=== PATIENT | male | born 1950 | race Two or more races ===

== ENCOUNTER 2018-02-22 12:42 | Observation (INO) | payer OTHER ==
[2018-02-22 13:06] VITALS: BMI 32.3
--- NOTE | 2018-02-22 13:39 | PDOC ---
History of Present Illness - General Chief Complaint: Pain Stated Complaint: ABD PAIN Time Seen by Provider: 02/22/18 13:37 History Source: Patient Exam Limitations: No Limitations Past History - Past Medical History Allergies/Adverse Reactions: Allergies Allergy/AdvReac Type Severity Reaction Status Date / Time Penicillins Allergy Mild Rash Verified 02/22/18 13:01 shellfish derived Allergy Mild Hives Verified 02/22/18 13:01 ceftriaxone sodium Allergy Verified 02/22/18 13:01 [From Jaimeks[place]] seafood Allergy Uncoded 02/22/18 13:01 Home Medications: Ambulatory Orders Metoprolol Succinate [Toprol Xl] 100 mg PO DAILY #30 tab.sr.24h 06/26/14 Simvastatin [Zocor -] 40 mg PO HS #30 tablet 06/26/14 Allopurinol [Zyloprim -] 300 mg PO DAILY 02/22/18 Benazepril/Hydrochlorothiazide [Benazepril-Hctz 20-25 mg Tab] 1 each PO DAILY Docusate Sodium 100 mg PO BID 02/22/18 Gemfibrozil 600 mg PO DAILY 02/22/18 Oxycodone HCl/Acetaminophen [Percocet 5-325 mg Tablet] 1 tab PO Q6H PRN Ruxolitinib Phosphate [Jakafi] 15 mg PO BID 02/22/18 metFORMIN HCL [Glucophage -] 1,000 mg PO DAILY 02/22/18 Anemia: No Asthma: No Cancer: Yes Cardiac Disorders: Yes (STENT PLACEMENT 2004) CVA: No COPD: No CHF: No Dementia: No Diabetes: Yes GI Disorders: No Disorders: No HTN: Yes Hypercholesterolemia: Yes Liver Disease: No Seizures: No Thyroid Disease: No - Surgical History Abdominal Surgery: No Appendectomy: No Cardiac Surgery: Yes (Stent x 2) Cholecystectomy: No Lung Surgery: No Neurologic Surgery: No Orthopedic Surgery: No - Immunization History Immunization Up to Date: Yes - Suicide/Smoking/Psychosocial Hx Smoking History: Never smoked Have you smoked in the past 12 months: No Number of Cigarettes Smoked Daily: 20 If you are a former smoker, when did you quit?: 15 YEARS Cigars Per Day: 0 Hx Alcohol Use: No Drug/Substance Use Hx: No Substance Use Type: None Hx Substance Use Treatment: No *Physical Exam - Vital Signs Last Vital Signs Temp Pulse Resp BP Pulse Ox 97.9 F 80 18 124/64 99 02/22/18 13:02 02/22/18 13:02 02/22/18 13:02 02/22/18 13:02 02/22/18 13:02 Moderate Sedation - Procedure Monitoring Vital Signs: Procedure Monitoring Vital Signs Temperature 97.9 F 02/22/18 13:02 Pulse Rate 80 02/22/18 13:02 Respiratory Rate 18 02/22/18 13:02 Blood Pressure 124/64 02/22/18 13:02 O2 Sat by Pulse Oximetry (%) 99 02/22/18 13:02 ED Treatment Course - LABORATORY CBC & Chemistry Diagram: 02/22/18 14:15 02/22/18 14:15 Medical Decision Making - Medical Decision Making Pt was seen at bedside, also will be seen by attending Dr. Valdez. Pt presenting with complaints of LUQ pain since last night. PE showed tenderness in the LUQ and LLQ, no rebound, no guarding, with hepatosplenomegaly present. Large, round mass (~4-5 cm) palpated in the LUQ of the abdomen. PE otherwise benign. Considering metastasis (liver/spleen/stomach/pancreas) vs diverticulosis/ diverticulitis vs colitis vs pancreatitis. Ordered work-up including CBC, CMP, Mg, lipase, troponin, UA, PT/INR, ECG and imaging including chest x-ray and abd/pelvis CT with IV contrast. Provided 4 mg IV morphine for improvement of pain. Will continue to reassess pt and monitor for symptomatic improvement. 02/22/18 14:25 CBC: platelets 82, no increased WBC CMP: glucose 190, Na 131, Cl 96 PT/INR WNL. Lipase WNL and troponin negative. 02/22/18 14:59 Pt has bloodwork from last week, appear similar to today (platelets 93) 02/22/18 15:[address] abd/pelvis and chest x-ray. Lactic acid 2.6 Pt did not meet sepsis protocol on presentation and did not appear clinically dry. Will initiate fluid hydration 1 L IV NS. 02/22/18 15:27 Repeat lactic acid sent to lab after fluid hydration. Chest x-ray showed no acute pathology. 02/22/18 17:57 CT abd/pelvis: Hepatosplenomegaly that has slightly decreased in size since the prior examination. Nodular hyperplasia of the left adrenal gland versus a nodule/adenoma measuring 1.3 cm. Small bilateral renal simple cysts. Small gallstones layering in the gallbladder neck region without CT evidence of acute cholecystitis. There is no evidence of small bowel obstruction. No free air or free fluid in the abdomen pelvis. Visualized osseous structures appear intact without evidence of focal bone destruction. 02/22/18 17:59 Paging hospitalist team for admission. Blank admission order placed per protocol. Dr. De Jesus called [facility] (Dr. Marilynn Greenberg - [phone]) and left a message to determine further information about the patient. 02/22/18 18:01 Pt accepted for admission. Admission order to be changed. Pt eating comfortably and says pain is controlled for now. Awaiting bed upstairs. 02/22/18 18:23 Repeat lactic acid 1.6 02/22/18 18:28 Dr. De Jesus spoke with Dr. Greenberg at [facility]. Pt MUST continue taking his Jalkani (chemotherapy medication) to avoid cytokine storm. ER nursing staff aware. Called admission team to make them aware, awaiting call back. Pts son bringing Jalkani to the hospital (we do not carry it in pharmacy) and he took his morning dose -- pt takes 15 mg PO BID. 02/22/18 18:59 Spoke with admitting team, aware that pt needs to take Jalkani medication. Son has brought medication to the ER and will receive afternoon dose. Pt comfortable and awaiting bed upstairs. 02/22/18 19:49 *DC/Admit/Observation/Transfer Diagnosis at time of Disposition: LUQ abdominal pain, Myelofibrosis, Hepatosplenomegaly - Discharge Dispostion Condition at time of disposition: Stable Decision to Admit order: Yes - Referrals - Patient Instructions - Post Discharge Activity
[2018-02-22] MEDS ORDERED: morphine CARPU-JECT 4 MG/1 ML DISP.SYRIN IVPUSH ONE (14:22)
[2018-02-22 14:24] LABS: BASO % 5.3 % (0-2.0); EOS % 3.1 % (0-4.5); HEMOGLOBIN 10.7 GM/dL (11.7-16.9); LYMPH % 15.2 % (8-40); MCH 28.5 pg (25.7-33.7); MCHC 35.5 g/dl (32.0-35.9); MEAN CELL VOLUME 80.1 fl (80-96); MEAN PLT VOLUME 8.8 fl (7.5-11.1); MONO % 5.4 % (3.8-10.2); PLATELET COUNT 82 K/MM3 (134-434); RBC 3.75 M/mm3 (4.00-5.60); RDW 24.4 % (11.9-15.9); WHITE BLOOD COUNT 5.8 K/mm3 (4.0-10.0)
[2018-02-22] MEDS ORDERED: morphine SULFATE 4 MG/ML VIAL ONE (14:25)
--- NOTE | 2018-02-22 14:27 | PDOC ---
Attending Attestation - Resident Resident Name: PaulLoida - ED Attending Attestation I have performed the following: I have examined & evaluated the patient, The case was reviewed & discussed with the resident, I agree w/resident's findings & plan, Exceptions are as noted - HPI HPI: 02/22/18 14:24 67 yo male with recently diagnosed myelofibrosis here with /co luq pain. pt has had h/o HSM, seen by dr. Blackburn today, sent for evaluation of luq pain. pt denies n/v no f/c no urinary complaints. no change to stool. did not take anything for pain prior to arrival. - Physicial Exam PE: 02/22/18 14:25 awake alert lungs clear bilaterally heart rrr no mrg abd soft luq ttp. no rebound no guarding. no cva tenderness. no palp rib tenderness. skin warm and dry. alert oriented x 3. - Medical Decision Making 02/22/18 14:26 67 yo male h/o myelofibrosis, hsm here with luq pain. plan ct a/p pain control labs. differential worsening mets, congestion gastric ulcer, uti pyelo plan labs ivf ua ct a/p Heart Score/ECG Review #1 General ECG Interpretation: Sinus Rhythm, Normal Rate, Normal Intervals, No acute ischemic changes Compared to previous ECG there are: No significant change (comparison 06/22/14 TWI III only)
[2018-02-22 14:47] LABS: INR 0.97 (0.83-1.09); PROTHROMBIN TIME (PATIENT) 11.4 SEC (9.7-13.0)
[2018-02-22 14:48] LABS: ALBUMIN 4.8 g/dl (3.4-5.0); ALK PHOS 52 U/L (45-117); ANION GAP 9 MMOL/L (8-16); BLOOD UREA NITROGEN 24 mg/dL (7-18); CALCIUM 8.4 mg/dL (8.5-10.1); CHLORIDE 96 mmol/L (98-107); CO2 26 mmol/L (21-32); CREATININE 1.3 mg/dL (0.55-1.3); GLUCOSE,RANDOM 190 mg/dL (74-106); LIPASE 210 U/L (73-393); MAGNESIUM 2.4 mg/dL (1.8-2.4); POTASSIUM 3.7 mmol/L (3.5-5.1); SGOT/AST 25 U/L (15-37); SGPT/ALT 28 U/L (13-61); SODIUM 131 mmol/L (136-145); TOT PROT 8.1 g/dl (6.4-8.2)
[2018-02-22] MEDS ORDERED: SODIUM CHLORIDE 1,000 ML IV STA (15:27)
[2018-02-22 15:53] LABS: ANISOCYTOSIS 1+; MACROCYTOSIS 0; OVALOCYTE 1+; PLATELET ESTIMATE DECREASED; TEAR DROP CELLS 1+
--- NOTE | 2018-02-22 16:23 | EKG ---
Test Reason : Blood Pressure : / mmHG Vent. Rate : 069 BPM Atrial Rate : 069 BPM P-R Int : 150 ms QRS Dur : 088 ms QT Int : 392 ms P-R-T Axes : 048 -05 005 degrees QTc Int : 420 ms NORMAL SINUS RHYTHM INFERIOR INFARCT (CITED ON OR BEFORE 11-JUN-2014) ABNORMAL ECG Confirmed by MD SJ, LIBBY (2012) on 02/22/2018 4:22:48 PM Referred By: Confirmed By:LIBBY GUSTAFSON MD
[2018-02-22 17:19] LABS: URINE APPEARANCE CLEAR; URINE BILIRUBIN NEGATIVE (<2.0 mg/dL); URINE COLOR STRAW; URINE GLUCOSE (UA) NEGATIVE (NEGATIVE); URINE KETONE NEGATIVE (NEGATIVE); URINE LEUK ESTERASE NEGATIVE (NEGATIVE); URINE NITRITE NEGATIVE (NEGATIVE); URINE PROTEIN NEGATIVE (NEGATIVE); URINE UROBILINOGEN NEGATIVE mg/dL (0.2-1.0)
[2018-02-22] MEDS ORDERED: ACETAMINOPHEN 325 MG TABLET (FP) PO PRN (18:54)
[2018-02-22] MEDS ORDERED: oxyCODONE HCL 5 MG TABLET PO PRN (18:54)
--- NOTE | 2018-02-22 19:30 | HP ---
CHIEF COMPLAINT: LUQ pain PCP: Dr. Collado HISTORY OF PRESENT ILLNESS: 67 year old male with a PMH significant for Myelofibrosis (on chemo), DM, HTN, HLD, gout presented to the ED with LUQ pain since last night. He presented to his PCP Dr. Collado today who advised him to go to the ED to be admitted for further GI work up. Denies recent fevers, light headedness, syncope, SOB, chest pain, n/v/d. Upon admission to the ED, VSS, labs notable for lactic acid of 2.6, trop neg, EKG with on ischemic changes. Abdominal/pelivic CT showed hepatosplenomegaly with nodules to adrenal glands. He was given 1 L NS and morphine 4 mg. Repeat lactic acid decreased to 1.6. He reports pain is now controlled. Recent Travel: No PAST MEDICAL HISTORY: Myelofibrosis DM HTN HLD Gout PAST SURGICAL HISTORY: Cardiac stent x1 Cardiac cath x2 Social History: Smoking: Never Alcohol: Denies Drugs: Denies Family History: Sister: Diabetes Allergies Penicillins Allergy (Mild, Verified 02/22/18 13:01) Rash shellfish derived Allergy (Mild, Verified 02/22/18 13:01) Hives ceftriaxone sodium [From Rocephin] Allergy (Verified 02/22/18 13:01) seafood Allergy (Uncoded 02/22/18 13:01) HOME MEDICATIONS: Home Medications Medication Instructions Recorded Metoprolol Succinate [Toprol Xl] 100 mg PO DAILY #30 tab.sr.24h 06/26/14 Simvastatin [Zocor -] 40 mg PO HS #30 tablet 06/26/14 Allopurinol [Zyloprim -] 300 mg PO DAILY 02/22/18 Benazepril/Hydrochlorothiazide 1 each PO DAILY 02/22/18 [Benazepril-Hctz 20-25 mg Tab] Docusate Sodium 100 mg PO BID 02/22/18 Gemfibrozil 600 mg PO DAILY 02/22/18 Oxycodone HCl/Acetaminophen 1 tab PO Q6H PRN 02/22/18 [Percocet 5-325 mg Tablet] Ruxolitinib Phosphate [Jakafi] 15 mg PO BID 02/22/18 metFORMIN HCL [Glucophage -] 1,000 mg PO DAILY 02/22/18 REVIEW OF SYSTEMS CONSTITUTIONAL: Absent: fever, chills, diaphoresis, generalized weakness, malaise, loss of appetite, weight change HEENT: Absent: rhinorrhea, nasal congestion, throat pain, throat swelling, difficulty swallowing, mouth swelling, ear pain, eye pain, visual changes CARDIOVASCULAR: Absent: chest pain, syncope, palpitations, irregular heart rate, lightheadedness , peripheral edema RESPIRATORY: Absent: cough, shortness of breath, dyspnea with exertion, orthopnea, wheezing, stridor, hemoptysis GASTROINTESTINAL: (+) Abdominal pain Absent: abdominal distension, nausea, vomiting, diarrhea, constipation, melena , hematochezia GENITOURINARY: Absent: dysuria, frequency, urgency, hesitancy, hematuria, flank pain, genital pain MUSCULOSKELETAL: Absent: myalgia, arthralgia, joint swelling, back pain, neck pain SKIN: Absent: rash, itching, pallor HEMATOLOGIC/IMMUNOLOGIC: Absent: easy bleeding, easy bruising, lymphadenopathy, frequent infections ENDOCRINE: Absent: unexplained weight gain, unexplained weight loss, heat intolerance, cold intolerance NEUROLOGIC: Absent: headache, focal weakness or paresthesias, dizziness, unsteady gait, seizure, mental status changes, bladder or bowel incontinence PSYCHIATRIC: Absent: anxiety, depression, suicidal or homicidal ideation, hallucinations. PHYSICAL EXAMINATION Vital Signs - 24 hr 02/22/18 02/22/18 13:02 18:14 Temperature 97.9 F 97.8 F Pulse Rate 80 Pulse Rate [ 65 Right Radial] Respiratory 18 17 Rate Blood Pressure 124/64 Blood Pressure 106/58 L [Left Arm] O2 Sat by Pulse 99 100 Oximetry (%) GENERAL: Awake, alert, and fully oriented, in no acute distress. HEAD: Normal with no signs of trauma. EYES: Arcus senils b/l pupils equal, round and reactive to light, extraocular movements intact, sclera anicteric, conjunctiva clear. No lid lag. EARS, NOSE, THROAT: Ears normal, nares patent, oropharynx clear without exudates. Moist mucous membranes. NECK: Normal range of motion, supple without lymphadenopathy, JVD, or masses. LUNGS: Breath sounds equal, clear to auscultation bilaterally. No wheezes, and no crackles. No accessory muscle use. HEART: Regular rate and rhythm, normal S1 and S2 without murmur, rub or gallop. ABDOMEN: Firm, hardened, round mass in LUQ, TTP, normoactive bowel sounds, no guarding, no rebound, no masses MUSCULOSKELETAL: Normal range of motion at all joints. No bony deformities or tenderness. No CVA tenderness. UPPER EXTREMITIES: 2+ pulses, warm, well-perfused. No cyanosis. No clubbing. No peripheral edema. LOWER EXTREMITIES: 2+ pulses, warm, well-perfused. No calf tenderness. No peripheral edema. NEUROLOGICAL: No facial droop, tongue midline, normal speech. PSYCHIATRIC: Cooperative. Good eye contact. Appropriate mood and affect. SKIN: Warm, dry, normal turgor, no rashes or lesions noted, normal capillary refill. Laboratory Results - last 24 hr 02/22/18 02/22/18 02/22/18 14:15 14:15 14:15 WBC 5.8 RBC 3.75 L Hgb 10.7 L Hct 30.0 L D MCV 80.1 MCH 28.5 MCHC 35.5 RDW 24.4 H Plt Count 82 L D MPV 8.8 Absolute Neuts (auto) 4.1 Neutrophils % 71.0 Neutrophils % (Manual) 58.9 Band Neutrophils % 3.2 Lymphocytes % 15.2 D Lymphocytes % (Manual) 14.7 Monocytes % 5.4 Monocytes % (Manual) 6 Eosinophils % 3.1 D Eosinophils % (Manual) 5.3 H Basophils % 5.3 H* Basophils % (Manual) 5.3 H* Myelocytes % (Man) 2 Promyelocytes % (Man) 0 Blast Cells % (Manual) 0 Nucleated RBC % 5 H Metamyelocytes 2 Hypochromia 0 Platelet Estimate Decreased Polychromasia 1+ Poikilocytosis 2+ Anisocytosis 1+ Microcytosis 1+ Macrocytosis 0 Tear Drop Cells 1+ Ovalocytes 1+ PT with INR 11.40 INR 0.97 Sodium 131 L Potassium 3.7 Chloride 96 L Carbon Dioxide 26 Anion Gap 9 BUN 24 H Creatinine 1.3 Creat Clearance w eGFR 55.40 Random Glucose 190 H Lactic Acid Calcium 8.4 L Magnesium 2.4 Total Bilirubin 1.0 AST 25 ALT 28 Alkaline Phosphatase 52 Troponin I < 0.02 Total Protein 8.1 Albumin 4.8 Lipase 210 Urine Color Urine Appearance Urine pH Ur Specific [place] Urine Protein Urine Glucose (UA) Urine Ketones Urine Blood Urine Nitrite Urine Bilirubin Urine Urobilinogen Ur Leukocyte Esterase Blood Type Antibody Screen 02/22/18 02/22/1818 14:15 14:15 17:11 WBC RBC Hgb Hct MCV MCH MCHC RDW Plt Count MPV Absolute Neuts (auto) Neutrophils % Neutrophils % (Manual) Band Neutrophils % Lymphocytes % Lymphocytes % (Manual) Monocytes % Monocytes % (Manual) Eosinophils % Eosinophils % (Manual) Basophils % Basophils % (Manual) Myelocytes % (Man) Promyelocytes % (Man) Blast Cells % (Manual) Nucleated RBC % Metamyelocytes Hypochromia Platelet Estimate Polychromasia Poikilocytosis Anisocytosis Microcytosis Macrocytosis Tear Drop Cells Ovalocytes PT with INR INR Sodium Potassium Chloride Carbon Dioxide Anion Gap BUN Creatinine Creat Clearance w eGFR Random Glucose Lactic Acid 2.6 H* Calcium Magnesium Total Bilirubin AST ALT Alkaline Phosphatase Troponin I Total Protein Albumin Lipase Urine Color Straw Urine Appearance Clear Urine pH 5.0 Ur Specific [place] 1.055 H Urine Protein Negative Urine Glucose (UA) Negative Urine Ketones Negative Urine Blood Negative Urine Nitrite Negative Urine Bilirubin Negative Urine Urobilinogen Negative Ur Leukocyte Esterase Negative Blood Type A POSITIVE Antibody Screen Negative 02/22/18 17:43 WBC RBC Hgb Hct MCV MCH MCHC RDW Plt Count MPV Absolute Neuts (auto) Neutrophils % Neutrophils % (Manual) Band Neutrophils % Lymphocytes % Lymphocytes % (Manual) Monocytes % Monocytes % (Manual) Eosinophils % Eosinophils % (Manual) Basophils % Basophils % (Manual) Myelocytes % (Man) Promyelocytes % (Man) Blast Cells % (Manual) Nucleated RBC % Metamyelocytes Hypochromia Platelet Estimate Polychromasia Poikilocytosis Anisocytosis Microcytosis Macrocytosis Tear Drop Cells Ovalocytes PT with INR INR Sodium Potassium Chloride Carbon Dioxide Anion Gap BUN Creatinine Creat Clearance w eGFR Random Glucose Lactic Acid 1.6 Calcium Magnesium Total Bilirubin AST ALT Alkaline Phosphatase Troponin I Total Protein Albumin Lipase Urine Color Urine Appearance Urine pH Ur Specific [place] Urine Protein Urine Glucose (UA) Urine Ketones Urine Blood Urine Nitrite Urine Bilirubin Urine Urobilinogen Ur Leukocyte Esterase Blood Type Antibody Screen CT Abdomen/Pelvis - Hepatosplenomegaly that has slightly decreased in size since the prior examination. - Nodular hyperplasia of the left adrenal gland versus a nodule/adenoma measuring 1.3 cm. - Small bilateral renal simple cysts. - Small gallstones layering in the gallbladder neck region without CT evidence of acute cholecystitis. - There is no evidence of small bowel obstruction. No free air or free fluid in the abdomen pelvis. - Visualized osseous structures appear intact without evidence of focal bone destruction. ASSESSMENT/PLAN: 67 year old male with a PMH significant for Myelofibrosis (on chemo), DM, HTN, HLD, gout presented to the ED with LUQ pain since last night. CT scan positive for hepatosplenomegaly. He was admitted for further GI work up and pain management. LUQ pain - Abdominal CT shows hepatosplenomegaly, nodules to adrenal glands, and small gallstones without cholecystitis - Possible metastases - GI consult ordered Myelofibrosis - Followed at [facility] (Dr. Marilynn Greenberg - [phone]) - Ruxolitinib Phosphate [Jakafi] 15 mg PO BID - Pain control - Percocet 5-325 mg PO Q6H PRN - Docusate Sodium 100 mg PO BID DM - HOLD home metFORMIN HCL 1,000 mg PO DAILY - Monitor fingerstick glucose - SS with Novolog CAD - S/p stent - Followed by drier tender Dr. Jones at [facility] HTN - Controlled - Metoprolol Succinate 100 mg PO DAILY - Benazepril/Hydrochlorothiazide 20-25 mg PO DAILY - Monitor BP HLD - Simvastatin 40 mg PO HS - Gemfibrozil 600 mg PO DAILY - LFTs WNL Gout - Allopurinol 300 mg PO DAILY Prophylaxis - DVT: Heparin SQ FEN - PO intake adequate - Replete as needed - Diabetic, sodium controlled diet Disp: Patient requires further inpatient workup Visit type - Emergency Visit Emergency Visit: Yes ED Registration Date: 02/22/18 Care time: The patient presented to the Emergency Department on the above date and was hospitalized for further evaluation of their emergent condition. - New Patient This patient is new to me today: Yes Date on this admission: 02/23/18 - Critical Care Critical Care patient: No
[2018-02-22] MEDS ORDERED: RUXOLITINIB PHOSPHATE PO SCH (22:00)
[2018-02-22] MEDS: DOCUSATE SODIUM 100 MG CAPSULE (FP) PO SCH (22:53)
[2018-02-22] MEDS: ATORVASTATIN CA 20 MG TABLET (FP) PO SCH (22:53)
[2018-02-22] MEDS: RUXOLITINIB PHOSPHATE PO SCH (22:57)
[2018-02-22] MEDS ORDERED: PT OWN MED DRAWER 7, Y5N ONE (23:00)
[2018-02-23] MEDS ORDERED: HEPARIN NA (PORCINE) 5,000 UNITS/ML 1ML VIAL SQ SCH (06:00)
[2018-02-23] MEDS ORDERED: PT OWN MED DRAWER 7, Y5N ONE ×6 (06:12→18:03)
[2018-02-23 06:46] LABS: HEMATOCRIT 25.4 % (35.4-49); HEMOGLOBIN 8.4 GM/dL (11.7-16.9); MCH 26.8 pg (25.7-33.7); MCHC 32.9 g/dl (32.0-35.9); MEAN CELL VOLUME 81.3 fl (80-96); MEAN PLT VOLUME 8.3 fl (7.5-11.1); PLATELET COUNT 53 K/MM3 (134-434); RBC 3.13 M/mm3 (4.00-5.60); RDW 24.4 % (11.9-15.9); WHITE BLOOD COUNT 4.2 K/mm3 (4.0-10.0)
[2018-02-23] MEDS: INSULIN SLIDING SCALE (NOVOLOG) 1 VIAL SQ SCH ×4 (06:46→16:43)
[2018-02-23] MEDS: GEMFIBROZIL 600 MG TABLET (FP) PO SCH ×2 (06:47→17:50)
[2018-02-23 06:49] LABS: ANION GAP 7 MMOL/L (8-16); BLOOD UREA NITROGEN 23 mg/dL (7-18); CALCIUM 7.9 mg/dL (8.5-10.1); CHLORIDE 102 mmol/L (98-107); CO2 27 mmol/L (21-32); CREATININE 1.3 mg/dL (0.55-1.3); GLUCOSE,RANDOM 168 mg/dL (74-106); MAGNESIUM 2.4 mg/dL (1.8-2.4); POTASSIUM 4.1 mmol/L (3.5-5.1); SODIUM 136 mmol/L (136-145)
[2018-02-23] MEDS: RUXOLITINIB PHOSPHATE PO SCH ×2 (08:23→16:44)
[2018-02-23] MEDS: ALLOPURINOL 300 MG TABLET (FP) PO SCH (09:52)
[2018-02-23] MEDS: LISINOPRIL 20 MG TABLET (FP) PO SCH (09:52)
[2018-02-23] MEDS: HYDROCHLOROTHIAZIDE 25 MG TABLET (FP) PO SCH (09:53)
[2018-02-23] MEDS: DOCUSATE SODIUM 100 MG CAPSULE (FP) PO SCH ×2 (09:53→21:34)
[2018-02-23] MEDS ORDERED: GEMFIBROZIL 600 MG TABLET (FP) PO SCH (10:00)
--- NOTE | 2018-02-23 12:58 | CON.GI ---
Consult Consult Specialty:: Gastroenterology Referred by:: Dr. Collado Reason for Consultation:: LUQ pain - History of Present Illness Chief Complaint: LUQ pain History of Present Illness: 67 yo male h/o myelofibrosis (on chemotherapy), CAD, DM, HTN presents with LUQ pain. Pt reports intermittent LUQ pain over the past few months, however with worsening over the past 1-2 days. He describes severe, sharp pain at left abdomen awakening him at night. Denies associated n/v, change in bowel pattern or rectal bleeding. Denies heartburn, dysphagia. No association with food or pain radiation. Denies fever/chills. He had an appointment with PMD, Dr. Collado yesterday who advised ED evaluation due to the pain. CT abd/pelvis performed yesterday revealing hepatosplenomegaly (decreased from prior exam), gallstones, otherwise no acute GI pathology (see report for full details). Pt currently reports feeling better, states pain has resolved. Has not required analgesia for the pain. Appetite good, ate breakfast, asking to go home. No complaints on my evaluation. - History Source History Provided By: Patient - Past Medical History Cardio/Vascular: Yes: CAD, HTN, Hyperlipdemia Heme/Onc: Yes: Other (Myelofibrosis) Endocrine: Yes: Diabetes Mellitus - Alcohol/Substance Use Hx Alcohol Use: No - Smoking History Smoking history: Former smoker Have you smoked in the past 12 months: No Aproximately how many cigarettes per day: 20 If you are a former smoker, when did you quit?: 15 YEARS - Social History Usual Living Arrangement: With Spouse ADL: Independent Occupation: retired contstruction worker History of Recent Travel: No Home Medications - Allergies Allergies/Adverse Reactions: Allergies Allergy/AdvReac Type Severity Reaction Status Date / Time Penicillins Allergy Mild Rash Verified 02/22/18 13:01 shellfish derived Allergy Mild Hives Verified 02/22/18 13:01 ceftriaxone sodium Allergy Verified 02/22/18 13:01 [From Rocephin] seafood Allergy Uncoded 02/22/18 13:01 - Home Medications Home Medications: Ambulatory Orders Metoprolol Succinate [Toprol Xl] 100 mg PO DAILY #30 tab.sr.24h 06/26/14 Simvastatin [Zocor -] 40 mg PO HS #30 tablet 06/26/14 Allopurinol [Zyloprim -] 300 mg PO DAILY 12/18/18 Benazepril/Hydrochlorothiazide [Benazepril-Hctz 20-25 mg Tab] 1 each PO DAILY Docusate Sodium 100 mg PO BID 02/22/18 Gemfibrozil 600 mg PO DAILY 02/22/18 Oxycodone HCl/Acetaminophen [Percocet 5-325 mg Tablet] 1 tab PO Q6H PRN Ruxolitinib Phosphate [Jakafi] 15 mg PO BID 02/22/18 metFORMIN HCL [Glucophage -] 1,000 mg PO DAILY 02/22/18 Family Disease History - Family Disease History Family Disease History: Other: Father (healthy and living), Mother (healthy and living), Brother (etoh) Review of Systems - Review of Systems Constitutional: reports: No Symptoms Cardiovascular: reports: No Symptoms Respiratory: reports: No Symptoms Gastrointestinal: reports: No Symptoms Physical Exam-GI Vital Signs: Vital Signs Temperature 97.8 F 02/23/18 08:29 Pulse Rate 72 02/23/18 08:29 Respiratory Rate 20 02/23/18 08:29 Blood Pressure 120/69 02/23/18 08:29 O2 Sat by Pulse Oximetry (%) 98 02/23/18 07:45 Constitutional: Yes: Well Nourished, No Distress Cardiovascular: Yes: WNL, Regular Rate and Rhythm Respiratory: Yes: WNL, Regular, CTA Bilaterally Gastrointestinal Inspection: Yes: Other (Abdomen soft, nondistended, nontender, slight fullness at LUQ, +palpable spleen) Edema: No Labs: CBC, BMP 02/23/18 06:00 02/23/18 06:00 INR, PTT INR 0.97 (0.83-1.09) 02/22/18 14:15 Imaging - Results Cat Scan: Report Reviewed, Image Reviewed Problem List - Problems (1) LUQ abdominal pain Assessment/Plan: 67 yo male h/o myelofibrosis on Ruxolitinib, CAD, DM, HTN presents with LUQ pain. Appears acute on chronic LUQ pain with intermittent symptoms over the past several months, now resolved per pt. No reported association with food or other GI symptoms. Pancytopenia noted on labs. Otherwise LFTs and lipase normal. CT imaging with hepatosplenomegaly (decreased from prior exam) and gallstones otherwise without acute findings. LUQ pain possibly secondary to hepato/splenomegaly in setting of underlying myelofibrosis vs musculoskeletal, less consistent with PUD or pancreatitis based on labs and imaging. -Continue supportive measures -Diet as tolerated -In absence of symptoms currently, no urgent GI intervention indicated -If symptoms recur, please notify GI for re-evaluation and further recommendations -Further management per primary team and oncology Discussed with medicine team Code(s): R10.12 - LEFT UPPER QUADRANT PAIN
--- NOTE | 2018-02-23 17:38 | PN ---
Progress Note, Physician Chief Complaint: LUQ PAIN History of Present Illness: PREVIOUS NOTES AND EVENTS REVIEWED AWAKE AND ALERT NAD DENIES ABDOMINAL PAIN - Current Medication List Current Medications: Active Medications Acetaminophen (Tylenol -) 325 mg PO Q6H PRN PRN Reason: PAIN LEVEL 4 - 6 Allopurinol (Zyloprim -) 300 mg PO DAILY [facility] Last Admin: 02/23/18 09:52 Dose: 300 mg Atorvastatin Calcium (Lipitor -) 20 mg PO HS [facility] Last Admin: 02/22/18 22:53 Dose: 20 mg Docusate Sodium (Colace -) 100 mg PO BID [facility] Last Admin: 02/23/18 09:53 Dose: 100 mg Gemfibrozil (Lopid -) 600 mg PO BID@0730,1700 [facility] Last Admin: 02/23/18 06:47 Dose: 600 mg Hydrochlorothiazide (Hctz -) 25 mg PO DAILY [facility] Last Admin: 02/23/18 09:53 Dose: 25 mg Insulin Aspart (Novolog Vial Sliding Scale -) 1 vial SQ TIDAC [facility]; Protocol Last Admin: 02/23/18 16:43 Dose: Not Given Lisinopril (Prinivil) 20 mg PO DAILY [facility] Last Admin: 02/23/18 09:52 Dose: 20 mg Metformin HCl (Glucophage -) 1,000 mg PO BID@0700,1630 [facility] Metoprolol Succinate (Toprol Xl -) 100 mg PO DAILY [facility] Last Admin: 02/23/18 09:53 Dose: 100 mg Non-Formulary Medication (Ruxolitinib Phosphate [Jakafi]) 0 mg PO BID@0800, 1700 [facility] Last Admin: 02/23/18 16:44 Dose: 15 mg Oxycodone HCl (Roxicodone -) 5 mg PO Q6H PRN PRN Reason: PAIN LEVEL 4 - 6 Last Admin: 02/22/18 23:15 Dose: 5 mg - Objective Vital Signs: Vital Signs Temperature 97.9 F 02/23/18 14:07 Pulse Rate 66 02/23/18 14:07 Respiratory Rate 20 02/23/18 15:45 Blood Pressure 117/65 02/23/18 14:07 O2 Sat by Pulse Oximetry (%) 98 02/23/18 15:45 Constitutional: Yes: Well Nourished, No Distress, Calm Neck: Yes: Supple Cardiovascular: Yes: WNL, Regular Rate and Rhythm Respiratory: Yes: Regular, CTA Bilaterally Gastrointestinal: Yes: Normal Bowel Sounds, Soft Musculoskeletal: Yes: WNL Extremities: Yes: WNL Edema: No Neurological: Yes: Alert, Oriented Psychiatric: Yes: Alert, Oriented Labs: CBC, BMP 02/23/18 06:00 02/23/18 06:00 INR, PTT INR 0.97 (0.83-1.09) 02/22/18 14:15 Problem List - Problems (1) Hepatosplenomegaly Code(s): R16.2 - HEPATOMEGALY WITH SPLENOMEGALY, NOT ELSEWHERE CLASSIFIED (2) LUQ abdominal pain Code(s): R10.12 - LEFT UPPER QUADRANT PAIN (3) Myelofibrosis Code(s): D75.81 - MYELOFIBROSIS (4) Diabetes Code(s): E11.9 - TYPE 2 DIABETES MELLITUS WITHOUT COMPLICATIONS (5) Hypertension Code(s): I10 - ESSENTIAL (PRIMARY) HYPERTENSION Assessment/Plan GI RECOMMENDATIONS APPRECIATED, CT SCAN RESULTS REVIEWED IF CONT TO HAVE NO ABDOMINAL PAIN CAN DISCHARGE IN AM WITH SURGERY AND GI REFERRAL Hg DOWNTREND NOTED FROM 10.7-8.4, STOOL OB AND CBC ORDERED BGM, CONT WITH ISS DVT PPX
[2018-02-23 20:18] LABS: HEMATOCRIT 25.1 % (35.4-49); HEMOGLOBIN 8.8 GM/dL (11.7-16.9); MCH 28.2 pg (25.7-33.7); MCHC 35.1 g/dl (32.0-35.9); MEAN CELL VOLUME 80.4 fl (80-96); MEAN PLT VOLUME 9.5 fl (7.5-11.1); PLATELET COUNT 74 K/MM3 (134-434); RBC 3.12 M/mm3 (4.00-5.60); RDW 24.3 % (11.9-15.9); WHITE BLOOD COUNT 5.1 K/mm3 (4.0-10.0)
[2018-02-23] MEDS ORDERED: INSULIN (NOVOLOG) ASPART 100 UNITS/ML 10ML VIAL ONE (21:06)
[2018-02-23] MEDS: ATORVASTATIN CA 20 MG TABLET (FP) PO SCH (21:33)
[2018-02-24] MEDS: INSULIN SLIDING SCALE (NOVOLOG) 1 VIAL SQ SCH ×2 (06:05→11:17)
[2018-02-24] MEDS ORDERED: metFORMIN HCL 500 MG TABLET (FP) PO SCH (07:00)
[2018-02-24] MEDS ORDERED: PT OWN MED DRAWER 7, Y5N ONE (07:43)
[2018-02-24] MEDS: RUXOLITINIB PHOSPHATE PO SCH (08:02)
[2018-02-24] MEDS: GEMFIBROZIL 600 MG TABLET (FP) PO SCH (08:03)
[2018-02-24 08:58] VITALS: BP 125/69; TEMP 98.8
[2018-02-24 09:42] VITALS: PULSE 78
[2018-02-24] MEDS: HYDROCHLOROTHIAZIDE 25 MG TABLET (FP) PO SCH (09:58)
[2018-02-24] MEDS: ALLOPURINOL 300 MG TABLET (FP) PO SCH (09:58)
[2018-02-24] MEDS: DOCUSATE SODIUM 100 MG CAPSULE (FP) PO SCH (09:58)
[2018-02-24] MEDS: LISINOPRIL 20 MG TABLET (FP) PO SCH (09:58)
--- NOTE | 2018-02-24 10:08 | DS ---
Physical Examination Vital Signs: Vital Signs Temperature 98.8 F 02/24/18 08:54 Pulse Rate 78 02/24/18 09:42 Respiratory Rate 20 02/24/18 08:54 Blood Pressure 125/69 02/24/18 08:54 O2 Sat by Pulse Oximetry (%) 100 02/24/18 08:54 Findings/Remarks: PATIENT ADMITTED FOR LUQ PAIN CT SCAN PERFORMED AND RESULTS REVIEWED PATIENT STATES FEELING BETTER AND DENIES ABDOMINAL PAIN Constitutional: Yes: Well Nourished, No Distress, Calm Eyes: Yes: Conjunctiva Clear Neck: Yes: Supple Cardiovascular: Yes: Regular Rate and Rhythm Respiratory: Yes: Regular, CTA Bilaterally Gastrointestinal: Yes: Normal Bowel Sounds, Soft Musculoskeletal: Yes: WNL Extremities: Yes: WNL Edema: No Neurological: Yes: Alert, Oriented Psychiatric: Yes: Alert, Oriented Labs: CBC, BMP 02/23/18 19:30 02/23/18 06:00 Discharge Summary Reason For Visit: MYELOPROLIFERATIVE DISORDER,LFT UPPER QUADRANT Current Active Problems Hepatosplenomegaly (Acute) LUQ abdominal pain (Acute) Myelofibrosis (Acute) Condition: Improved - Instructions Diet, Activity, Other Instructions: FOLLOW UP WITH PMD IN 3-4 DAYS FOLLOW UP WITH ONCOLOGIST SCHEDULED REFERRAL FOR SURGERY DR TSANG AND GI SPECIALIST GIVEN CONT WITH MED PRESCIRBED LOW NA DIET Referrals: Mason Gaona DO [Staff Physician] - Laron Collado MD [Primary Care Provider] - Disposition: HOME - Home Medications Comprehensive Discharge Medication List: Ambulatory Orders Metoprolol Succinate [Toprol Xl] 100 mg PO DAILY #30 tab.sr.24h 06/26/14 Simvastatin [Zocor -] 40 mg PO HS #30 tablet 06/26/14 Benazepril/Hydrochlorothiazide [Benazepril-Hctz 20-25 mg Tab] 1 each PO DAILY Docusate Sodium 100 mg PO BID 02/22/18 Gemfibrozil 600 mg PO DAILY 02/22/18 Oxycodone HCl/Acetaminophen [Percocet 5-325 mg Tablet] 1 tab PO Q6H PRN Allopurinol [Zyloprim -] 300 mg PO DAILY #30 tablet 02/24/18 Atorvastatin Ca [Lipitor] 20 mg PO HS #30 tablet 02/24/18 Docusate Sodium [Colace -] 100 mg PO BID #60 capsule 02/24/18 Gemfibrozil [Lopid -] 600 mg PO DAILY #30 tablet 02/24/18 Hydrochlorothiazide [Hctz -] 25 mg PO DAILY #30 tablet 02/24/18 Lisinopril [Prinivil] 20 mg PO DAILY #30 tablet 02/24/18 Metoprolol Succinate [Toprol XL -] 100 mg PO DAILY #30 tab.sr.24h 02/24/18 Ruxolitinib Phosphate [Jakafi] 15 mg PO BID #60 tablet 02/24/18 metFORMIN HCL [Glucophage -] 1,000 mg PO BID@0700,1630 #60 tablet 02/24/18 metFORMIN HCL [Glucophage -] 1,000 mg PO DAILY #30 tablet 02/24/18
== END 2018-02-24 11:53 | disposition home or self-care (01) ==
LOC: JER 12:42 → JERBED 18:00 → J7W 20:15
PROVIDERS: ADMIT Family Medicine; ATTEND Family Medicine
PROC: 3E033NZ Introduction of Analgesics, Hypnotics, Sedatives into Peripheral Vein, Percutaneous Approach (ICD-10-PCS; principal; 2018-02-22)
PROC: 3E033GC Introduction of Other Therapeutic Substance into Peripheral Vein, Percutaneous Approach (ICD-10-PCS; 2018-02-22)
DX: R10.12 Left upper quadrant pain (principal); D75.81 Myelofibrosis; R16.2 Hepatomegaly with splenomegaly, not elsewhere classified; I10 Essential (primary) hypertension; E78.5 Hyperlipidemia, unspecified; E11.9 Type 2 diabetes mellitus without complications; M10.9 Gout, unspecified; I25.10 Atherosclerotic heart disease of native coronary artery without angina pectoris; Z87.891 Personal history of nicotine dependence; Z92.21 Personal history of antineoplastic chemotherapy; Z88.0 Allergy status to penicillin; Z88.1 Allergy status to other antibiotic agents; Z91.013 Allergy to seafood; Z95.5 Presence of coronary angioplasty implant and graft; Z79.84 Long term (current) use of oral hypoglycemic drugs
CPT/HCPCS: 36415; 71046-TC-FY; 74177-TC; 80048; 80053; 81003; 82272; 82962; 83605; 83690; 83735; 84484; 85025; 85027; 85610; 86850; 86900; 86901; 93005; 93010; 96361; 96374; 99284-25; G0378; J7030

== ENCOUNTER 2020-04-15 10:04 | Inpatient (IN) | payer OTHER ==
[2020-04-15] MEDS ORDERED: ACETAMINOPHEN 1000 MG/100 ML VIAL (NON FORMULARY) IVPB ONE (11:30)
[2020-04-15] MEDS ORDERED: ACETAMINOPHEN INJECTION 100 ML IVPB ONE (12:16)
[2020-04-15 12:38] LABS: EOS % 0.5 % (0-4.5); HEMATOCRIT 22.9 % (35.4-49); HEMOGLOBIN 7.6 GM/dL (11.7-16.9); LYMPH % 2.4 % (8-40); MCH 30.3 pg (25.7-33.7); MCHC 33.3 g/dl (32.0-35.9); MEAN CELL VOLUME 90.8 fl (80-96); MEAN PLT VOLUME 8.3 fl (7.5-11.1); MONO % 9.3 % (3.8-10.2); NEUT % 86.8 % (42.8-82.8); PLATELET COUNT 87 K/MM3 (134-434); RBC 2.52 M/mm3 (4.00-5.60); RDW 21.5 % (11.9-15.9); WHITE BLOOD COUNT 12.2 K/mm3 (4.0-10.0)
[2020-04-15 12:42] LABS: INR 1.37 (0.83-1.09); PROTHROMBIN TIME (PATIENT) 16.7 SEC (9.7-13.0)
[2020-04-15 13:03] LABS: POTASSIUM 4.2 mmol/L (3.5-5.1)
[2020-04-15 13:05] LABS: BLOOD UREA NITROGEN 48.4 mg/dL (7-18); CALCIUM 8.5 mg/dL (8.5-10.1)
[2020-04-15 13:06] LABS: ALBUMIN 3.4 g/dl (3.4-5.0)
[2020-04-15 13:09] LABS: CREATININE 1.7 mg/dL (0.55-1.3)
[2020-04-15 13:10] LABS: BILIRUBIN,TOTAL 0.8 mg/dL (0.2-1); TOT PROT 6.9 g/dl (6.4-8.2)
[2020-04-15 13:35] LABS: ANISOCYTOSIS 2+; MACROCYTOSIS 0; PLATELET ESTIMATE DECREASED
[2020-04-15] MEDS ORDERED: VANCOMYCIN 1 GM in D5W (PRE-DOCKED) 1,000 MG/250 ML IVPB ONE (14:16)
[2020-04-15] MEDS ORDERED: SODIUM CHLORIDE 500 ML IV STA (14:19)
[2020-04-15] MEDS ORDERED: VANCOMYCIN 1 GRAM (PRE-DOCKED) 1,000 MG/250 ML BAG IVPB ONE (14:22)
[2020-04-15] MEDS ORDERED: ACETAMINOPHEN 325 MG TABLET (FP) PO PRN ×2 (16:02→16:14)
[2020-04-15] MEDS: SODIUM CHLORIDE 1,000 ML IV SCH (16:05)
[2020-04-15] MEDS ORDERED: metFORMIN HCL 500 MG TABLET (FP) PO SCH (16:30)
[2020-04-15] MEDS: INSULIN SLIDING SCALE (NOVOLOG) 1 VIAL SQ SCH ×2 (16:36→22:37)
[2020-04-15 17:50] LABS: ERYTHROCYTE SEDIMENTATION RATE > 140 mm/hr (0-20)
[2020-04-15 19:23] LABS: EPI CELLS 5 /uL (0-25.1); HYALINE CASTS 1 /uL (0-3.1); PH,URINE 5.5 (5.0-8.0); URINE APPEARANCE TURBID; URINE BACTERIA 41 /uL (0-1359); URINE BILIRUBIN NEGATIVE (NEGATIVE); URINE COLOR YELLOW; URINE GLUCOSE (UA) 3+ (NEGATIVE); URINE KETONE NEGATIVE (NEGATIVE); URINE LEUK ESTERASE NEGATIVE (NEGATIVE); URINE NITRITE NEGATIVE (NEGATIVE); URINE PROTEIN 1+ (NEGATIVE); URINE RBC 19 /uL (0-23.9); URINE UROBILINOGEN 0.2 mg/dL (0.2-1.0); URINE WBC 6 /uL (0-25.8)
[2020-04-15] MEDS ORDERED: AZTREONAM 1 GM VIAL (RESTRICTED TO ID) ONE (19:27)
[2020-04-15] MEDS: AZTREONAM 1 GM in DEXTROSE 5%-WATER - 50 ML IVPB SCH (19:29)
[2020-04-15] MEDS ORDERED: ATORVASTATIN CA 20 MG TABLET (FP) ONE (20:57)
[2020-04-15] MEDS ORDERED: PT OWN MED DRAWER 7, Y5N ONE (20:57)
[2020-04-15] MEDS ORDERED: PANTOPRAZOLE 40 MG TABLET ONE (20:57)
[2020-04-15] MEDS: ATORVASTATIN CA 20 MG TABLET (FP) PO SCH (21:52)
[2020-04-15] MEDS: HYDROXYUREA 500 MG CAPSULE PO SCH (21:52)
[2020-04-15] MEDS: PANTOPRAZOLE 40 MG TABLET PO SCH (21:52)
[2020-04-15] MEDS: ALLOPURINOL 300 MG TABLET (FP) PO SCH (21:53)
[2020-04-16 04:45] VITALS: BMI 28.6
[2020-04-16] MEDS: SODIUM CHLORIDE 1,000 ML IV SCH ×2 (06:51→19:40)
[2020-04-16] MEDS: AZTREONAM 1 GM in DEXTROSE 5%-WATER - 50 ML IVPB SCH ×2 (06:53→18:59)
[2020-04-16] MEDS: INSULIN SLIDING SCALE (NOVOLOG) 1 VIAL SQ SCH ×4 (06:53→21:14)
[2020-04-16 09:24] LABS: BASO % 0.9 % (0-2.0); EOS % 0.5 % (0-4.5); LYMPH % 2.7 % (8-40); MCH 30.9 pg (25.7-33.7); MCHC 34.1 g/dl (32.0-35.9); MEAN CELL VOLUME 90.8 fl (80-96); MEAN PLT VOLUME 8.2 fl (7.5-11.1); MONO % 7.1 % (3.8-10.2); NEUT % 88.8 % (42.8-82.8); PLATELET COUNT 66 K/MM3 (134-434); RBC 2.21 M/mm3 (4.00-5.60); RDW 21.8 % (11.9-15.9)
[2020-04-16 09:50] LABS: IRON SERUM 26 ug/dL (50-175); POTASSIUM 3.8 mmol/L (3.5-5.1)
[2020-04-16 09:53] LABS: TOTAL IRON BINDING CAPACITY 176 ug/dL (250-450)
[2020-04-16] MEDS ORDERED: VANCOMYCIN 1,000 MG in DEXTROSE 5%-WATER - 250 ML IVPB SCH (10:00)
[2020-04-16] MEDS ORDERED: HYDROCHLOROTHIAZIDE 25 MG TABLET (FP) PO SCH (10:00)
[2020-04-16] MEDS ORDERED: LISINOPRIL 20 MG TABLET PO SCH (10:00)
[2020-04-16 10:07] LABS: ALBUMIN 2.9 g/dl (3.4-5.0); TOT PROT 6.3 g/dl (6.4-8.2)
[2020-04-16 10:08] LABS: BLOOD UREA NITROGEN 35.6 mg/dL (7-18); CALCIUM 8.4 mg/dL (8.5-10.1)
[2020-04-16 10:09] LABS: HEMOGLOBIN 6.8 GM/dL (11.7-16.9)
[2020-04-16 10:11] LABS: CREATININE 1.3 mg/dL (0.55-1.3)
[2020-04-16 10:12] LABS: BILIRUBIN,TOTAL 0.8 mg/dL (0.2-1)
[2020-04-16] MEDS ORDERED: FUROSEMIDE 40 MG/4 ML INJECTABLE VIAL IVPUSH ONE (10:26)
[2020-04-16 10:42] LABS: ERYTHROCYTE SEDIMENTATION RATE > 140 mm/hr (0-20)
[2020-04-16 11:24] LABS: ANISOCYTOSIS 1+; MACROCYTOSIS 0; PLATELET ESTIMATE DECREASED
[2020-04-16] MEDS: PANTOPRAZOLE 40 MG TABLET PO SCH ×2 (11:52→21:13)
[2020-04-16] MEDS: HYDROXYUREA 500 MG CAPSULE PO SCH ×2 (11:52→21:13)
[2020-04-16] MEDS: ALLOPURINOL 300 MG TABLET (FP) PO SCH ×2 (11:53→21:14)
[2020-04-16] MEDS: traMADol HCL 50 MG TABLET PO PRN (16:57)
[2020-04-16] MEDS: ATORVASTATIN CA 20 MG TABLET (FP) PO SCH (21:14)
[2020-04-17] MEDS: VANCOMYCIN 1,000 MG in DEXTROSE 5%-WATER - 250 ML IVPB SCH ×2 (00:46→13:52)
[2020-04-17] MEDS: traMADol HCL 50 MG TABLET PO PRN ×2 (00:57→09:54)
[2020-04-17] MEDS: AZTREONAM 1 GM in DEXTROSE 5%-WATER - 50 ML IVPB SCH ×2 (06:22→18:18)
[2020-04-17] MEDS: INSULIN SLIDING SCALE (NOVOLOG) 1 VIAL SQ SCH ×4 (06:22→21:03)
[2020-04-17] MEDS ORDERED: FUROSEMIDE 40 MG/4 ML INJECTABLE VIAL ONE (06:34)
[2020-04-17 09:03] LABS: BASO % 1.2 % (0-2.0); EOS % 0.7 % (0-4.5); HEMATOCRIT 25.2 % (35.4-49); HEMOGLOBIN 8.9 GM/dL (11.7-16.9); MCH 30.9 pg (25.7-33.7); MCHC 35.3 g/dl (32.0-35.9); MEAN CELL VOLUME 87.5 fl (80-96); MEAN PLT VOLUME 8.2 fl (7.5-11.1); MONO % 3.9 % (3.8-10.2); NEUT % 91.2 % (42.8-82.8); PLATELET COUNT 69 K/MM3 (134-434); RBC 2.88 M/mm3 (4.00-5.60); RDW 19.6 % (11.9-15.9); WHITE BLOOD COUNT 7.5 K/mm3 (4.0-10.0)
[2020-04-17 09:14] LABS: POTASSIUM 3.4 mmol/L (3.5-5.1)
[2020-04-17 09:17] LABS: BLOOD UREA NITROGEN 29.3 mg/dL (7-18)
[2020-04-17 09:20] LABS: CREATININE 1.1 mg/dL (0.55-1.3)
[2020-04-17 09:21] LABS: BILIRUBIN,TOTAL 2.6 mg/dL (0.2-1); TOT PROT 6.2 g/dl (6.4-8.2)
[2020-04-17] MEDS ORDERED: FERRIC CARBOXYMALTOSE 750 MG in SODIUM CHLORIDE 250 ML IVPB ONE (09:30)
[2020-04-17 09:48] LABS: ANISOCYTOSIS 2+; MACROCYTOSIS 0; PLATELET ESTIMATE NORMAL
[2020-04-17] MEDS: ALLOPURINOL 300 MG TABLET (FP) PO SCH (09:52)
[2020-04-17] MEDS: PANTOPRAZOLE 40 MG TABLET PO SCH ×2 (09:53→20:59)
[2020-04-17] MEDS: POLYETHYLENE GLYCOL 3350 119 GM BTL PO SCH (09:53)
[2020-04-17] MEDS: HYDROXYUREA 500 MG CAPSULE PO SCH (09:53)
[2020-04-17] MEDS: IRON POLYSACCHARIDES 150 MG CAPSULE PO SCH (11:49)
[2020-04-17] MEDS ORDERED: POTASSIUM CHLORIDE TABS 20 MEQ TABLET.ER (FP) PO ONE (12:00)
[2020-04-17] MEDS: oxyCODONE HCL 5 MG TABLET PO PRN ×2 (12:34→21:02)
[2020-04-17] MEDS: sitaGLIPtin PHOSPHATE 50 MG TABLET PO SCH (13:55)
[2020-04-17] MEDS: CLINDAMYCIN 600MG PREMIX IVPB 600 MG/50 ML BAG IVPB SCH (19:58)
[2020-04-17] MEDS: DOCUSATE SODIUM 100 MG CAPSULE (FP) PO SCH (21:02)
[2020-04-17] MEDS: ATORVASTATIN CA 20 MG TABLET (FP) PO SCH (21:02)
[2020-04-18] MEDS: VANCOMYCIN 1,000 MG in DEXTROSE 5%-WATER - 250 ML IVPB SCH ×2 (01:08→13:20)
[2020-04-18] MEDS: CLINDAMYCIN 600MG PREMIX IVPB 600 MG/50 ML BAG IVPB SCH ×3 (03:02→17:13)
[2020-04-18] MEDS: sitaGLIPtin PHOSPHATE 50 MG TABLET PO SCH (06:13)
[2020-04-18] MEDS: INSULIN SLIDING SCALE (NOVOLOG) 1 VIAL SQ SCH ×4 (06:13→21:18)
[2020-04-18] MEDS: AZTREONAM 1 GM in DEXTROSE 5%-WATER - 50 ML IVPB SCH ×2 (06:13→18:59)
[2020-04-18 09:24] LABS: BASO % 1.9 % (0-2.0); EOS % 0.6 % (0-4.5); HEMATOCRIT 22.9 % (35.4-49); HEMOGLOBIN 7.9 GM/dL (11.7-16.9); LYMPH % 2.8 % (8-40); MCH 30.5 pg (25.7-33.7); MCHC 34.5 g/dl (32.0-35.9); MEAN CELL VOLUME 88.2 fl (80-96); MEAN PLT VOLUME 8.6 fl (7.5-11.1); MONO % 5.3 % (3.8-10.2); NEUT % 89.4 % (42.8-82.8); PLATELET COUNT 59 K/MM3 (134-434); RBC 2.59 M/mm3 (4.00-5.60); RDW 19.9 % (11.9-15.9); WHITE BLOOD COUNT 5.1 K/mm3 (4.0-10.0)
[2020-04-18 09:49] LABS: POTASSIUM 4.3 mmol/L (3.5-5.1)
[2020-04-18 10:21] LABS: ALBUMIN 2.7 g/dl (3.4-5.0); BLOOD UREA NITROGEN 33.2 mg/dL (7-18)
[2020-04-18 10:23] LABS: MAGNESIUM 2.3 mg/dL (1.8-2.4)
[2020-04-18 10:25] LABS: CREATININE 1.2 mg/dL (0.55-1.3)
[2020-04-18 10:26] LABS: BILIRUBIN,TOTAL 1.9 mg/dL (0.2-1); TOT PROT 6.1 g/dl (6.4-8.2)
[2020-04-18] MEDS: PANTOPRAZOLE 40 MG TABLET PO SCH ×2 (10:50→21:17)
[2020-04-18] MEDS: ALLOPURINOL 300 MG TABLET (FP) PO SCH (10:51)
[2020-04-18] MEDS: IRON POLYSACCHARIDES 150 MG CAPSULE PO SCH (10:51)
[2020-04-18] MEDS: POLYETHYLENE GLYCOL 3350 119 GM BTL PO SCH (10:52)
[2020-04-18] MEDS: oxyCODONE HCL 5 MG TABLET PO PRN ×2 (12:11→21:17)
[2020-04-18 12:12] LABS: ANISOCYTOSIS 1+; MACROCYTOSIS 0; PLATELET ESTIMATE DECREASED
[2020-04-18] MEDS: SODIUM CHLORIDE 1,000 ML IV SCH (20:40)
[2020-04-18] MEDS: SENNOSIDES 8.6MG TABLET (FP) PO SCH (21:17)
[2020-04-18] MEDS: DOCUSATE SODIUM 100 MG CAPSULE (FP) PO SCH (21:17)
[2020-04-18] MEDS: ATORVASTATIN CA 20 MG TABLET (FP) PO SCH (21:18)
[2020-04-19] MEDS: VANCOMYCIN 1,000 MG in DEXTROSE 5%-WATER - 250 ML IVPB SCH ×2 (00:17→13:20)
[2020-04-19] MEDS: CLINDAMYCIN 600MG PREMIX IVPB 600 MG/50 ML BAG IVPB SCH ×3 (02:18→17:03)
[2020-04-19] MEDS: INSULIN SLIDING SCALE (NOVOLOG) 1 VIAL SQ SCH ×4 (06:11→21:06)
[2020-04-19] MEDS: sitaGLIPtin PHOSPHATE 50 MG TABLET PO SCH (06:12)
[2020-04-19] MEDS: AZTREONAM 1 GM in DEXTROSE 5%-WATER - 50 ML IVPB SCH ×2 (06:12→17:50)
[2020-04-19 08:39] LABS: BASO % 2.2 % (0-2.0); EOS % 1.1 % (0-4.5); HEMATOCRIT 21.9 % (35.4-49); HEMOGLOBIN 7.4 GM/dL (11.7-16.9); MCH 29.8 pg (25.7-33.7); MCHC 33.6 g/dl (32.0-35.9); MEAN CELL VOLUME 88.6 fl (80-96); MEAN PLT VOLUME 8.4 fl (7.5-11.1); MONO % 5.8 % (3.8-10.2); NEUT % 86.9 % (42.8-82.8); PLATELET COUNT 50 K/MM3 (134-434); RBC 2.47 M/mm3 (4.00-5.60); RDW 19.8 % (11.9-15.9); WHITE BLOOD COUNT 4.8 K/mm3 (4.0-10.0)
[2020-04-19 09:04] LABS: POTASSIUM 4.6 mmol/L (3.5-5.1)
[2020-04-19 09:07] LABS: CALCIUM 7.7 mg/dL (8.5-10.1)
[2020-04-19 09:08] LABS: ALBUMIN 2.4 g/dl (3.4-5.0); BLOOD UREA NITROGEN 33.1 mg/dL (7-18)
[2020-04-19 09:11] LABS: CREATININE 1.1 mg/dL (0.55-1.3)
[2020-04-19 09:12] LABS: BILIRUBIN,TOTAL 1.8 mg/dL (0.2-1); TOT PROT 5.8 g/dl (6.4-8.2)
[2020-04-19] MEDS: PANTOPRAZOLE 40 MG TABLET PO SCH ×2 (09:58→21:07)
[2020-04-19] MEDS: ALLOPURINOL 300 MG TABLET (FP) PO SCH (09:58)
[2020-04-19 10:01] LABS: ANISOCYTOSIS 1+; MACROCYTOSIS 0; PLATELET ESTIMATE DECREASED
[2020-04-19] MEDS: POLYETHYLENE GLYCOL 3350 119 GM BTL PO SCH (10:03)
[2020-04-19] MEDS: oxyCODONE HCL 5 MG TABLET PO PRN ×2 (17:03→21:08)
[2020-04-19] MEDS: ACETAMINOPHEN 325 MG TABLET (FP) PO PRN (19:11)
[2020-04-19] MEDS: DOCUSATE SODIUM 100 MG CAPSULE (FP) PO SCH (21:07)
[2020-04-19] MEDS: ATORVASTATIN CA 20 MG TABLET (FP) PO SCH (21:07)
[2020-04-19] MEDS: SENNOSIDES 8.6MG TABLET (FP) PO SCH (21:08)
[2020-04-19] MEDS: SODIUM CHLORIDE 1,000 ML IV SCH (21:40)
[2020-04-20] MEDS: CLINDAMYCIN 600MG PREMIX IVPB 600 MG/50 ML BAG IVPB SCH ×3 (01:11→17:41)
[2020-04-20] MEDS: oxyCODONE HCL 5 MG TABLET PO PRN ×3 (01:12→21:46)
[2020-04-20] MEDS: AZTREONAM 1 GM in DEXTROSE 5%-WATER - 50 ML IVPB SCH ×3 (02:25→17:40)
[2020-04-20] MEDS: INSULIN SLIDING SCALE (NOVOLOG) 1 VIAL SQ SCH ×4 (06:24→21:47)
[2020-04-20] MEDS: sitaGLIPtin PHOSPHATE 50 MG TABLET PO SCH (06:24)
[2020-04-20] MEDS: PANTOPRAZOLE 40 MG TABLET PO SCH ×2 (09:59→21:45)
[2020-04-20] MEDS: ALLOPURINOL 300 MG TABLET (FP) PO SCH (09:59)
[2020-04-20] MEDS: POLYETHYLENE GLYCOL 3350 119 GM BTL PO SCH (10:00)
[2020-04-20 12:52] LABS: BASO % 1.1 % (0-2.0); HEMATOCRIT 24.5 % (35.4-49); HEMOGLOBIN 8.3 GM/dL (11.7-16.9); LYMPH % 3.1 % (8-40); MCH 30.4 pg (25.7-33.7); MEAN CELL VOLUME 89.3 fl (80-96); MEAN PLT VOLUME 8.8 fl (7.5-11.1); MONO % 3.2 % (3.8-10.2); NEUT % 91.6 % (42.8-82.8); PLATELET COUNT 60 K/MM3 (134-434); RBC 2.74 M/mm3 (4.00-5.60)
[2020-04-20 13:04] LABS: POTASSIUM 4.7 mmol/L (3.5-5.1)
[2020-04-20 13:09] LABS: CALCIUM 7.9 mg/dL (8.5-10.1)
[2020-04-20 13:10] LABS: ALBUMIN 2.7 g/dl (3.4-5.0); BLOOD UREA NITROGEN 20.7 mg/dL (7-18)
[2020-04-20 13:14] LABS: BILIRUBIN,TOTAL 1.2 mg/dL (0.2-1); TOT PROT 6.4 g/dl (6.4-8.2)
[2020-04-20] MEDS: SODIUM CHLORIDE 1,000 ML IV SCH (21:44)
[2020-04-20] MEDS: DOCUSATE SODIUM 100 MG CAPSULE (FP) PO SCH (21:45)
[2020-04-20] MEDS: ATORVASTATIN CA 20 MG TABLET (FP) PO SCH (21:45)
[2020-04-20] MEDS: SENNOSIDES 8.6MG TABLET (FP) PO SCH (21:47)
[2020-04-21] MEDS: AZTREONAM 1 GM in DEXTROSE 5%-WATER - 50 ML IVPB SCH ×3 (01:05→17:03)
[2020-04-21] MEDS: CLINDAMYCIN 600MG PREMIX IVPB 600 MG/50 ML BAG IVPB SCH ×3 (01:46→17:03)
[2020-04-21] MEDS: sitaGLIPtin PHOSPHATE 50 MG TABLET PO SCH (06:07)
[2020-04-21] MEDS: INSULIN SLIDING SCALE (NOVOLOG) 1 VIAL SQ SCH ×4 (06:07→22:03)
[2020-04-21 10:29] LABS: POTASSIUM 4.2 mmol/L (3.5-5.1)
[2020-04-21] MEDS: PANTOPRAZOLE 40 MG TABLET PO SCH ×2 (10:31→21:34)
[2020-04-21] MEDS: oxyCODONE HCL 5 MG TABLET PO PRN ×2 (10:33→21:35)
[2020-04-21] MEDS: POLYETHYLENE GLYCOL 3350 119 GM BTL PO SCH (10:33)
[2020-04-21] MEDS: ALLOPURINOL 300 MG TABLET (FP) PO SCH (10:33)
[2020-04-21 10:38] LABS: ALBUMIN 2.5 g/dl (3.4-5.0); CALCIUM 7.4 mg/dL (8.5-10.1)
[2020-04-21 10:40] LABS: CREATININE 0.9 mg/dL (0.55-1.3)
[2020-04-21 10:42] LABS: BLOOD UREA NITROGEN 15.8 mg/dL (7-18); TOT PROT 5.9 g/dl (6.4-8.2)
[2020-04-21] MEDS: ATORVASTATIN CA 20 MG TABLET (FP) PO SCH (21:34)
[2020-04-21] MEDS: DOCUSATE SODIUM 100 MG CAPSULE (FP) PO SCH (21:54)
[2020-04-21] MEDS: SENNOSIDES 8.6MG TABLET (FP) PO SCH (22:04)
[2020-04-22] MEDS: AZTREONAM 1 GM in DEXTROSE 5%-WATER - 50 ML IVPB SCH ×3 (02:26→19:55)
[2020-04-22] MEDS: CLINDAMYCIN 600MG PREMIX IVPB 600 MG/50 ML BAG IVPB SCH ×3 (03:03→18:39)
[2020-04-22] MEDS: oxyCODONE HCL 5 MG TABLET PO PRN ×3 (05:20→21:30)
[2020-04-22] MEDS: sitaGLIPtin PHOSPHATE 50 MG TABLET PO SCH (06:13)
[2020-04-22] MEDS: INSULIN SLIDING SCALE (NOVOLOG) 1 VIAL SQ SCH ×4 (06:14→21:31)
[2020-04-22 09:38] LABS: POTASSIUM 4.7 mmol/L (3.5-5.1)
[2020-04-22 09:52] LABS: BLOOD UREA NITROGEN 12.8 mg/dL (7-18); CALCIUM 7.8 mg/dL (8.5-10.1)
[2020-04-22 09:53] LABS: ALBUMIN 2.6 g/dl (3.4-5.0)
[2020-04-22 09:55] LABS: URIC ACID 2.9 mg/dL (2.6-7.2)
[2020-04-22 09:57] LABS: CREATININE 0.8 mg/dL (0.55-1.3)
[2020-04-22 09:59] LABS: TOT PROT 6.1 g/dl (6.4-8.2)
[2020-04-22] MEDS: ALLOPURINOL 300 MG TABLET (FP) PO SCH (10:18)
[2020-04-22] MEDS: POLYETHYLENE GLYCOL 3350 119 GM BTL PO SCH (10:20)
[2020-04-22] MEDS: PANTOPRAZOLE 40 MG TABLET PO SCH ×2 (10:24→21:30)
[2020-04-22] MEDS: ACETAMINOPHEN 325 MG TABLET (FP) PO PRN (10:29)
[2020-04-22] MEDS: SODIUM CHLORIDE 1 GM TABLET PO SCH (14:18)
[2020-04-22 14:42] LABS: ANISOCYTOSIS 1+; MACROCYTOSIS 1+; OVALOCYTE 1+; PLATELET ESTIMATE DECREASED; TEAR DROP CELLS 1+; TOXIC GRANULATION 1+
[2020-04-22] MEDS: LACTOBACILLUS ACIDOPHILUS 1 TABLET PO SCH (15:25)
[2020-04-22] MEDS: DOCUSATE SODIUM 100 MG CAPSULE (FP) PO SCH (21:30)
[2020-04-22] MEDS: ATORVASTATIN CA 20 MG TABLET (FP) PO SCH (21:30)
[2020-04-23] MEDS: CLINDAMYCIN 600MG PREMIX IVPB 600 MG/50 ML BAG IVPB SCH ×3 (00:59→18:58)
[2020-04-23] MEDS: AZTREONAM 1 GM in DEXTROSE 5%-WATER - 50 ML IVPB SCH ×3 (01:56→18:12)
[2020-04-23] MEDS: INSULIN SLIDING SCALE (NOVOLOG) 1 VIAL SQ SCH ×4 (06:18→21:44)
[2020-04-23] MEDS: sitaGLIPtin PHOSPHATE 50 MG TABLET PO SCH (06:18)
[2020-04-23 07:11] LABS: ANTI-DNAse B 87 U/mL (0-120)
[2020-04-23 09:08] LABS: BASO % 1.4 % (0-2.0); EOS % 1.1 % (0-4.5); HEMATOCRIT 21.8 % (35.4-49); HEMOGLOBIN 7.5 GM/dL (11.7-16.9); MCH 30.1 pg (25.7-33.7); MCHC 34.5 g/dl (32.0-35.9); MEAN CELL VOLUME 87.3 fl (80-96); MEAN PLT VOLUME 8.4 fl (7.5-11.1); MONO % 2.7 % (3.8-10.2); NEUT % 89.8 % (42.8-82.8); PLATELET COUNT 46 K/MM3 (134-434); RDW 19.3 % (11.9-15.9); WHITE BLOOD COUNT 7.2 K/mm3 (4.0-10.0)
[2020-04-23 09:26] LABS: POTASSIUM 4.6 mmol/L (3.5-5.1)
[2020-04-23 10:11] LABS: ALBUMIN 2.7 g/dl (3.4-5.0); CALCIUM 7.9 mg/dL (8.5-10.1)
[2020-04-23 10:12] LABS: BLOOD UREA NITROGEN 12.1 mg/dL (7-18)
[2020-04-23 10:14] LABS: CREATININE 0.9 mg/dL (0.55-1.3)
[2020-04-23 10:15] LABS: BILIRUBIN,TOTAL 1.2 mg/dL (0.2-1)
[2020-04-23 10:16] LABS: TOT PROT 6.2 g/dl (6.4-8.2)
[2020-04-23] MEDS: PANTOPRAZOLE 40 MG TABLET PO SCH ×2 (11:10→21:42)
[2020-04-23] MEDS: SODIUM CHLORIDE 1 GM TABLET PO SCH (11:10)
[2020-04-23] MEDS: ALLOPURINOL 300 MG TABLET (FP) PO SCH (11:10)
[2020-04-23] MEDS: POLYETHYLENE GLYCOL 3350 119 GM BTL PO SCH (11:10)
[2020-04-23] MEDS: LACTOBACILLUS ACIDOPHILUS 1 TABLET PO SCH (11:10)
[2020-04-23] MEDS: oxyCODONE HCL 5 MG TABLET PO PRN ×2 (11:15→21:42)
[2020-04-23 12:39] LABS: ANISOCYTOSIS 1+; MACROCYTOSIS 1+; PLATELET ESTIMATE DECREASED
[2020-04-23] MEDS: IRON POLYSACCHARIDES 150 MG CAPSULE PO SCH (15:35)
[2020-04-23] MEDS: ATORVASTATIN CA 20 MG TABLET (FP) PO SCH (21:42)
[2020-04-23] MEDS: DOCUSATE SODIUM 100 MG CAPSULE (FP) PO SCH (21:43)
[2020-04-24] MEDS: AZTREONAM 1 GM in DEXTROSE 5%-WATER - 50 ML IVPB SCH ×3 (00:59→18:05)
[2020-04-24] MEDS: CLINDAMYCIN 600MG PREMIX IVPB 600 MG/50 ML BAG IVPB SCH ×3 (01:49→18:58)
[2020-04-24] MEDS: sitaGLIPtin PHOSPHATE 50 MG TABLET PO SCH (06:01)
[2020-04-24] MEDS: oxyCODONE HCL 5 MG TABLET PO PRN (06:02)
[2020-04-24] MEDS: INSULIN SLIDING SCALE (NOVOLOG) 1 VIAL SQ SCH ×4 (06:02→21:29)
[2020-04-24] MEDS ORDERED: FUROSEMIDE 40 MG/4 ML INJECTABLE VIAL IVPUSH SCH (09:16)
[2020-04-24] MEDS: LACTOBACILLUS ACIDOPHILUS 1 TABLET PO SCH (10:45)
[2020-04-24] MEDS: POLYETHYLENE GLYCOL 3350 119 GM BTL PO SCH (10:45)
[2020-04-24] MEDS: PANTOPRAZOLE 40 MG TABLET PO SCH ×2 (10:45→21:29)
[2020-04-24] MEDS: SODIUM CHLORIDE 1 GM TABLET PO SCH (10:45)
[2020-04-24] MEDS: IRON POLYSACCHARIDES 150 MG CAPSULE PO SCH (10:45)
[2020-04-24] MEDS: ALLOPURINOL 300 MG TABLET (FP) PO SCH (10:45)
[2020-04-24 11:31] LABS: INR 1.27 (0.83-1.09); PROTHROMBIN TIME (PATIENT) 15.3 SEC (9.7-13.0)
[2020-04-24 11:34] LABS: ACTIVATED PTT 31.7 SECONDS (25.2-36.5)
[2020-04-24] MEDS: ATORVASTATIN CA 20 MG TABLET (FP) PO SCH (21:28)
[2020-04-24] MEDS: DOCUSATE SODIUM 100 MG CAPSULE (FP) PO SCH (21:28)
[2020-04-25] MEDS: CLINDAMYCIN 600MG PREMIX IVPB 600 MG/50 ML BAG IVPB SCH ×4 (01:21→18:00)
[2020-04-25] MEDS: AZTREONAM 1 GM in DEXTROSE 5%-WATER - 50 ML IVPB SCH ×3 (02:05→18:00)
[2020-04-25] MEDS: INSULIN SLIDING SCALE (NOVOLOG) 1 VIAL SQ SCH ×4 (06:01→21:05)
[2020-04-25] MEDS: sitaGLIPtin PHOSPHATE 50 MG TABLET PO SCH (06:09)
[2020-04-25] MEDS: oxyCODONE HCL 5 MG TABLET PO PRN (07:35)
[2020-04-25] MEDS: ALLOPURINOL 300 MG TABLET (FP) PO SCH (10:03)
[2020-04-25] MEDS: IRON POLYSACCHARIDES 150 MG CAPSULE PO SCH (10:03)
[2020-04-25] MEDS: LACTOBACILLUS ACIDOPHILUS 1 TABLET PO SCH (10:03)
[2020-04-25] MEDS: PANTOPRAZOLE 40 MG TABLET PO SCH ×2 (10:03→21:04)
[2020-04-25] MEDS: POLYETHYLENE GLYCOL 3350 119 GM BTL PO SCH (10:31)
[2020-04-25 12:01] LABS: POTASSIUM 3.9 mmol/L (3.5-5.1)
[2020-04-25 12:08] LABS: ALBUMIN 2.7 g/dl (3.4-5.0); BLOOD UREA NITROGEN 15.1 mg/dL (7-18); CALCIUM 7.9 mg/dL (8.5-10.1)
[2020-04-25 12:11] LABS: BILIRUBIN,TOTAL 1.1 mg/dL (0.2-1); CREATININE 0.9 mg/dL (0.55-1.3); TOT PROT 6.1 g/dl (6.4-8.2)
[2020-04-25] MEDS: traMADol HCL 50 MG TABLET PO PRN (15:31)
[2020-04-25] MEDS: DOCUSATE SODIUM 100 MG CAPSULE (FP) PO SCH (21:04)
[2020-04-25] MEDS: ACETAMINOPHEN 325 MG TABLET (FP) PO PRN (21:04)
[2020-04-25] MEDS: ATORVASTATIN CA 20 MG TABLET (FP) PO SCH (21:04)
[2020-04-25 21:09] LABS: BASO % 1.1 % (0-2.0); EOS % 0.6 % (0-4.5); HEMATOCRIT 24.9 % (35.4-49); HEMOGLOBIN 8.4 GM/dL (11.7-16.9); LYMPH % 10.1 % (8-40); MCH 30.1 pg (25.7-33.7); MCHC 33.8 g/dl (32.0-35.9); MEAN CELL VOLUME 88.9 fl (80-96); MEAN PLT VOLUME 8.7 fl (7.5-11.1); NEUT % 85.2 % (42.8-82.8); PLATELET COUNT 48 K/MM3 (134-434); RDW 19.4 % (11.9-15.9); WHITE BLOOD COUNT 8.2 K/mm3 (4.0-10.0)
[2020-04-25 21:47] LABS: ANISOCYTOSIS 3+; MACROCYTOSIS 0; OVALOCYTE 1+; PLATELET ESTIMATE DECREASED; TEAR DROP CELLS 1+
[2020-04-26] MEDS: CLINDAMYCIN 600MG PREMIX IVPB 600 MG/50 ML BAG IVPB SCH ×3 (01:52→17:31)
[2020-04-26] MEDS: AZTREONAM 1 GM in DEXTROSE 5%-WATER - 50 ML IVPB SCH ×3 (01:52→17:31)
[2020-04-26] MEDS: INSULIN SLIDING SCALE (NOVOLOG) 1 VIAL SQ SCH ×4 (06:16→21:03)
[2020-04-26] MEDS: sitaGLIPtin PHOSPHATE 50 MG TABLET PO SCH (06:16)
[2020-04-26 08:02] LABS: BASO % 0.9 % (0-2.0); HEMATOCRIT 24.2 % (35.4-49); HEMOGLOBIN 8.3 GM/dL (11.7-16.9); LYMPH % 7.6 % (8-40); MCH 30.2 pg (25.7-33.7); MCHC 34.4 g/dl (32.0-35.9); MEAN CELL VOLUME 87.9 fl (80-96); MEAN PLT VOLUME 8.4 fl (7.5-11.1); MONO % 3.4 % (3.8-10.2); NEUT % 87.1 % (42.8-82.8); PLATELET COUNT 44 K/MM3 (134-434); RBC 2.75 M/mm3 (4.00-5.60); RDW 19.6 % (11.9-15.9); WHITE BLOOD COUNT 5.8 K/mm3 (4.0-10.0)
[2020-04-26] MEDS: POLYETHYLENE GLYCOL 3350 119 GM BTL PO SCH ×2 (08:40→10:27)
[2020-04-26] MEDS: PANTOPRAZOLE 40 MG TABLET PO SCH ×2 (10:25→21:03)
[2020-04-26] MEDS: LACTOBACILLUS ACIDOPHILUS 1 TABLET PO SCH (10:26)
[2020-04-26] MEDS: ALLOPURINOL 300 MG TABLET (FP) PO SCH (10:27)
[2020-04-26] MEDS: IRON POLYSACCHARIDES 150 MG CAPSULE PO SCH (10:27)
[2020-04-26 10:51] LABS: ANISOCYTOSIS 0; MACROCYTOSIS 0; PLATELET ESTIMATE DECREASED
[2020-04-26] MEDS: traMADol HCL 50 MG TABLET PO PRN (15:27)
[2020-04-26] MEDS: DOCUSATE SODIUM 100 MG CAPSULE (FP) PO SCH (21:02)
[2020-04-26] MEDS: ATORVASTATIN CA 20 MG TABLET (FP) PO SCH (21:03)
[2020-04-27] MEDS: CLINDAMYCIN 600MG PREMIX IVPB 600 MG/50 ML BAG IVPB SCH ×2 (01:27→11:17)
[2020-04-27] MEDS: AZTREONAM 1 GM in DEXTROSE 5%-WATER - 50 ML IVPB SCH ×2 (02:03→09:26)
[2020-04-27] MEDS: sitaGLIPtin PHOSPHATE 50 MG TABLET PO SCH (06:07)
[2020-04-27] MEDS: INSULIN SLIDING SCALE (NOVOLOG) 1 VIAL SQ SCH ×2 (06:07→11:20)
[2020-04-27] MEDS: PANTOPRAZOLE 40 MG TABLET PO SCH (09:27)
[2020-04-27] MEDS: ALLOPURINOL 300 MG TABLET (FP) PO SCH (09:27)
[2020-04-27] MEDS: IRON POLYSACCHARIDES 150 MG CAPSULE PO SCH (09:27)
[2020-04-27] MEDS: LACTOBACILLUS ACIDOPHILUS 1 TABLET PO SCH (09:27)
[2020-04-27] MEDS: traMADol HCL 50 MG TABLET PO PRN (09:34)
[2020-04-27] MEDS: POLYETHYLENE GLYCOL 3350 119 GM BTL PO SCH (09:47)
[2020-04-27 12:00] LABS: BASO % 0.9 % (0-2.0); HEMATOCRIT 22.8 % (35.4-49); HEMOGLOBIN 7.6 GM/dL (11.7-16.9); MCH 29.9 pg (25.7-33.7); MCHC 33.5 g/dl (32.0-35.9); MEAN CELL VOLUME 89.2 fl (80-96); MEAN PLT VOLUME 8.8 fl (7.5-11.1); MONO % 4.1 % (3.8-10.2); PLATELET COUNT 43 K/MM3 (134-434); RBC 2.56 M/mm3 (4.00-5.60); RDW 20.2 % (11.9-15.9); WHITE BLOOD COUNT 5.2 K/mm3 (4.0-10.0)
[2020-04-27 12:44] VITALS: BP 116/60; PULSE 78; TEMP 98.3
[2020-04-27 14:58] LABS: ANISOCYTOSIS 1+; MACROCYTOSIS 1+; PLATELET ESTIMATE DECREASED
== END 2020-04-27 12:00 | disposition short-term general hospital (02) | DRG 603 ==
LOC: JER 10:04 → JERBED 16:33 → J5WEST-2 04-16 03:23
PROVIDERS: ADMIT Family Medicine; ATTEND Family Medicine
PROC: 30233N1 Transfusion of Nonautologous Red Blood Cells into Peripheral Vein, Percutaneous Approach (ICD-10-PCS; principal; 2020-04-15)
DX: L03.116 Cellulitis of left lower limb (principal); N17.9 Acute kidney failure, unspecified; D75.81 Myelofibrosis; E87.1 Hypo-osmolality and hyponatremia; D47.1 Chronic myeloproliferative disease; I25.10 Atherosclerotic heart disease of native coronary artery without angina pectoris; E78.5 Hyperlipidemia, unspecified; I10 Essential (primary) hypertension; E11.9 Type 2 diabetes mellitus without complications; I25.2 Old myocardial infarction; K21.9 Gastro-esophageal reflux disease without esophagitis; R16.2 Hepatomegaly with splenomegaly, not elsewhere classified; D64.9 Anemia, unspecified; K43.9 Ventral hernia without obstruction or gangrene; D69.6 Thrombocytopenia, unspecified; K59.00 Constipation, unspecified; Z95.5 Presence of coronary angioplasty implant and graft; Z88.1 Allergy status to other antibiotic agents
CPT/HCPCS: 36415; 36430; 73630-TC-LT; 73700-TC-RT; 74190-TC-FY; 76882-TC-RT-FY; 80048; 80053; 81003; 82272; 82436; 82565; 82607; 82728; 82746; 82962; 83036; 83540; 83550; 83605; 83615; 83735; 84133; 84300; 84439; 84443; 84550; 85025; 85610; 85651; 85730; 86140; 86215; 86850; 86900; 86901; 86922; 87040; 87086; 93005; 93010; 93971-TC; 97116-GP; 97162-GP; 99285-25; C9803; J0131; J1439; J8999; P9058; U0003